=== PATIENT | female | born 1965 | race Caucasian/White ===

== ENCOUNTER → 2021-07-01 09:59 | Outpatient (BNVA) | payer OTHER, SELFPAY | PROVIDERS: PCP Internal Medicine; Visit Provider Nurse Practitioner Family | DX: M53.9 Dorsopathy, unspecified (principal); M47.27 Other spondylosis with radiculopathy, lumbosacral region | CPT/HCPCS: 99202 ==

== ENCOUNTER → 2021-07-16 11:22 | Outpatient (BNVA) | payer OTHER, SELFPAY | PROVIDERS: PCP Internal Medicine; Visit Provider Nurse Practitioner Family | DX: M53.9 Dorsopathy, unspecified (principal); M47.27 Other spondylosis with radiculopathy, lumbosacral region | CPT/HCPCS: 99212 ==

== ENCOUNTER → 2021-08-05 15:59 | Outpatient (BNVA) | payer OTHER, SELFPAY | PROVIDERS: Visit Provider Nurse Practitioner Family | DX: Z51.81 Encounter for therapeutic drug level monitoring (principal); M53.9 Dorsopathy, unspecified; M47.27 Other spondylosis with radiculopathy, lumbosacral region | CPT/HCPCS: 99212 ==

== ENCOUNTER → 2021-09-02 13:19 | Outpatient (BNVA) | payer OTHER, SELFPAY | PROVIDERS: Visit Provider Nurse Practitioner Family | DX: Z51.81 Encounter for therapeutic drug level monitoring (principal); M53.9 Dorsopathy, unspecified; M47.27 Other spondylosis with radiculopathy, lumbosacral region | CPT/HCPCS: 99212 ==

== ENCOUNTER 2024-06-26 08:44 | Outpatient (REF) | payer OTHER, SELFPAY ==
--- NOTE | ~2024-06-26 | XR_ITS ---
EXAMINATION: XR BILATERAL KNEES CLINICAL INFORMATION: Reason for Exam M25.562 - Pain in left knee COMPARISON: Knee radiographs 08/17/2019 TECHNIQUE: 1 views of the bilateral knees standing and 2 views of each knee FINDINGS: RIGHT KNEE: No acute fracture or dislocation. Status post total knee arthroplasty in anatomic alignment. No evidence of hardware fracture or complication. No joint effusion. Soft tissues are unremarkable. LEFT KNEE: No acute fracture or dislocation. Status post total knee arthroplasty in anatomic alignment. No evidence of hardware fracture or complication. No joint effusion. Soft tissues are unremarkable. XR/XR knee LT 3V IMPRESSION: Status post bilateral total knee arthroplasties in anatomic alignment. No evidence of hardware fracture or complication.
--- NOTE | ~2024-06-26 | XR_ITS ---
EXAMINATION: XR BILATERAL KNEES CLINICAL INFORMATION: Reason for Exam M25.562 - Pain in left knee COMPARISON: Knee radiographs 08/17/2019 TECHNIQUE: 1 views of the bilateral knees standing and 2 views of each knee FINDINGS: RIGHT KNEE: No acute fracture or dislocation. Status post total knee arthroplasty in anatomic alignment. No evidence of hardware fracture or complication. No joint effusion. Soft tissues are unremarkable. LEFT KNEE: No acute fracture or dislocation. Status post total knee arthroplasty in anatomic alignment. No evidence of hardware fracture or complication. No joint effusion. Soft tissues are unremarkable. XR/XR knee RT 3V IMPRESSION: Status post bilateral total knee arthroplasties in anatomic alignment. No evidence of hardware fracture or complication.
== END 2024-06-26 08:45 | disposition home or self-care (01) ==
LOC: HO.HOSX 08:44
PROVIDERS: Visit Provider Orthopaedic Surgery
DX: Z96.653 Presence of artificial knee joint, bilateral (principal)
CPT/HCPCS: 73562; 99202

== ENCOUNTER 2024-06-26 09:46 | Outpatient (AMB) | payer OTHER, SELFPAY ==
--- NOTE | 2024-06-26 09:51 | A.OFFVIS_ITS ---
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 Hx of Right TKA 04/16/2015 & Left TKA 08/23/2018. Patient reports that her pain started about 6 months ago, her pain is described as an ache. She also has increased swelling and stiffness. Left worse than right. She tries to be active and walk but she has increased pain and swelling with prolonged walking. 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 Hx of Right TKA 04/16/2015 & Left TKA 08/23/2018. Patient reports that her pain started about 6 months ago, her pain is described as an ache. She also has increased swelling and stiffness. Left worse than right. She tries to be active and walk but she has increased pain and swelling with prolonged walking. [facility] Surgical History (Updated 06/26/24 @ 10:37 by Chase Campbell MD) History of total right knee replacement (04/16/15) History of left knee replacement (08/23/18) History of back surgery Physical Exam [facility]i no pain wiht rom no effusion stable arc of motion nl gait Results Reviewed Results Reviewed: I personally reviewed relevant radiographs. bilateral total knee arthroplasty in expected post operative position with no hardware complications or evidence of loosening Assessment & Plan Assessment & Plan (1) Status post bilateral knee replacements: Code(s): Z96.653 - Presence of artificial knee joint, bilateral Category: Medical Plan: doing well. continue cross training. no restrictions (2) History of back surgery: Comment: Lumbar Spine Code(s): Z98.890 - Other specified postprocedural states Category: Medical Plan: Ongoing back pain limiting activity. sees a back MD and should continue to do wo. Orders: Orders XR knee RT 3V Today M25.561 - Pain in right knee XR knee LT 3V Today M25.562 - Pain in left knee Coding Level of Care Code New Pt Level 4 (84936) Diagnoses Status post bilateral knee replacements Z96.653 History of back surgery Z98.896
== END 2024-06-26 12:36 | disposition home or self-care (01) ==
PROVIDERS: PCP Internal Medicine; Visit Provider Orthopaedic Surgery
DX: M25.561 Pain in right knee (principal); M25.562 Pain in left knee; Z96.653 Presence of artificial knee joint, bilateral; M54.50 Low back pain, unspecified
CPT/HCPCS: 99204